=== PATIENT | male | born 1995 | race Caucasian/White ===

== ENCOUNTER 2024-12-19 04:15 | Emergency (ER) | payer OTHER ==
[~2024-12-19] VITALS: Ht 182.9 cm; Wt 99.8 kg
[2024-12-19] MEDS ORDERED: DICLOFENAC SODI75 MG PO (04:42)
[2024-12-19] MEDS ORDERED: ORPHENADRINE CITRATE 30 MG/ML AMPUL ONE (04:44)
[2024-12-19] MEDS ORDERED: KETOROLAC TROMETHAMINE 60 MG VIAL IM ONE ×2 (04:44→04:45)
[2024-12-19] MEDS ORDERED: ORPHENADRINE CITRATE 30 MG/ML AMPUL IM ONE (04:45)
== END 2024-12-19 05:06 | disposition home or self-care (01) ==
LOC: ER 04:40
DX: S13.4XXA Sprain of ligaments of cervical spine, initial encounter (principal); V49.9XXA Car occupant (driver) (passenger) injured in unspecified traffic accident, initial encounter; Y93.89 Activity, other specified; Y92.413 State road as the place of occurrence of the external cause; Y99.9 Unspecified external cause status
CPT/HCPCS: 72040; 96372; 99283; J1885